=== PATIENT | male | born 1995 | race Hispanic/Latino ===

== ENCOUNTER 2020-10-07 12:21 | Emergency (ER) | payer OTHER ==
[2020-10-07] MEDS ORDERED: ASPIRIN 325 MG TABLET ONE (12:29)
[2020-10-07 12:45] LABS: BASOPHILS % (AUTO) 0.4 % (0.0-5.0); HEMATOCRIT 46.7 % (42-54); LYMPHOCYTES % (AUTO) 29.7 % (21.0-51.0); MEAN CORPUSCULAR HEMOGLOBIN 30.1 pg (27.0-33.0); MEAN CORPUSCULAR HGB CONC 34.7 g/dL (32.0-36.0); MEAN CORPUSCULAR VOLUME 86.6 fL (79-99); MONOCYTES % (AUTO) 9.4 % (3.0-13.0); NEUTROPHILS % (AUTO) 59.2 % (40.0-77.0); PLATELET COUNT (AUTO) 260 K/uL (130-400); RED BLOOD CELL COUNT(AUTO) 5.39 MIL/uL (4.50-6.20); WHITE BLOOD COUNT (AUTO) 6.7 K/uL (4.8-10.8)
[2020-10-07 13:08] LABS: INR 0.94 (0.85-1.15); PARTIAL THROMBOPLASTIN TIME 26.5 SEC (26.3-35.5); PROTHROMBIN TIME 10.2 SEC (9.6-11.6)
[2020-10-07 13:16] LABS: B-TYPE NATRIURETIC PEPTIDE 10 pg/mL (0-100)
[2020-10-07 13:33] LABS: ALBUMIN 4.6 g/dL (3.5-5.0); BILIRUBIN,TOTAL 0.7 mg/dL (0.2-1.0); CREATININE 0.9 mg/dL (0.5-1.5); POTASSIUM 3.5 mmol/L (3.5-5.1)
[2020-10-07 14:17] LABS: APPEARANCE,URINE CLEAR (CLEAR); BILIRUBIN,URINE NEGATIVE (NEGATIVE); COLOR,URINE YELLOW (YELLOW); GLUCOSE, URINE (UA) NEGATIVE (NEGATIVE); KETONES,URINE NEGATIVE (NEGATIVE); LEUKOCYTE ESTERASE ,URINE NEGATIVE (NEGATIVE); NITRATE,URINE NEGATIVE (NEGATIVE); OCCULT BLOOD,URINE NEGATIVE (NEGATIVE); PH,URINE 7.5 (5.0-8.0); PROTEIN,URINE NEGATIVE (NEGATIVE); UROBILINOGEN,URINE 0.2 mg/dL (0.2-1.0)
== END 2020-10-07 17:50 | disposition home or self-care (01) ==
LOC: EDH 12:21
DX: R07.89 Other chest pain (principal); R00.2 Palpitations; Z72.0 Tobacco use
CPT/HCPCS: 36415; 71045; 80053; 81003; 82550; 83880; 84484; 85025; 85610; 85730; 93005

== ENCOUNTER 2021-10-02 06:06 | Day surgery (SDC) | payer OTHER ==
[2021-09-28 11:15] LABS: BASOPHILS % (AUTO) 0.5 % (0.0-5.0); EOSINOPHILS % (AUTO) 1.1 % (0.0-8.0); HEMATOCRIT 45.3 % (42-54); LYMPHOCYTES % (AUTO) 28.1 % (21.0-51.0); MEAN CORPUSCULAR HEMOGLOBIN 30.6 pg (27.0-33.0); MEAN CORPUSCULAR HGB CONC 35.1 g/dL (32.0-36.0); MEAN CORPUSCULAR VOLUME 87.1 fL (79-99); MONOCYTES % (AUTO) 8.2 % (3.0-13.0); NEUTROPHILS % (AUTO) 61.7 % (40.0-77.0); PLATELET COUNT (AUTO) 267 K/uL (130-400); RED CELL DISTRIBUTION WIDTH 11.9 % (11.0-15.5); WHITE BLOOD COUNT (AUTO) 7.3 K/uL (4.8-10.8)
[2021-09-28 11:26] LABS: CREATININE 0.9 mg/dL (0.5-1.5); POTASSIUM 3.8 mmol/L (3.5-5.1)
[2021-09-28 11:36] LABS: INR 0.96 (0.85-1.15); PROTHROMBIN TIME 10.5 SEC (9.6-11.6)
[2021-09-28 11:38] LABS: PARTIAL THROMBOPLASTIN TIME 27.3 SEC (26.3-35.5)
[2021-10-01 09:40] VITALS: BP 160/86
[2021-10-02] VITALS (9 sets, daily range): BP systolic 117–152; BP diastolic 77–91
[~2021-10-02] VITALS: Ht 180.3 cm; Wt 112.4 kg
[~2021-10-02 06:06] MED LIST: DILT240C97 PO
[2021-10-02] MEDS ORDERED: 0.9%NACL 1000ML 1,000 ML IV ONE (07:07)
[2021-10-02] MEDS ORDERED: HEPARIN 10,000 UNIT/10ML (1,000 UNIT/ML) VIAL ONE (07:20)
[2021-10-02] MEDS ORDERED: LIDOCAINE HCL 400MG/20ML VIAL ONE ×2 (07:20→08:39)
[2021-10-02] MEDS ORDERED: MEPERIDINE-PF 25 MG/ML SYG ONE ×4 (08:08→09:51)
[2021-10-02] MEDS ORDERED: MIDAZOLAM HCL 1 MG/ML 2ML VIAL ONE ×4 (08:08→09:51)
[2021-10-02] MEDS ORDERED: ADENOSINE 6MG VIAL IV ONE (10:00)
[2021-10-02] MEDS ORDERED: ADENOSINE 90MG VIAL IV ONE (10:16)
[2021-10-02] MEDS ORDERED: ONDANSETRON 4MG INJ ONE (11:06)
[2021-10-02] MEDS ORDERED: FLECAINIDE ACETATE 100 MG TABLET PO SCH (12:02)
[2021-10-02] MEDS ORDERED: FLEC100T3 PO (12:07)
== END 2021-10-02 14:45 | disposition home or self-care (01) ==
LOC: DAH 06:06
PROVIDERS: ATTEND Internal Medicine Cardiovascular Disease
DX: I47.1 Supraventricular tachycardia (principal); I48.91 Unspecified atrial fibrillation; I45.10 Unspecified right bundle-branch block; G20 Parkinson's disease; Z79.01 Long term (current) use of anticoagulants; Z98.890 Other specified postprocedural states; Z72.89 Other problems related to lifestyle; Z79.899 Other long term (current) drug therapy
CPT/HCPCS: 36415; 80048; 85025; 85610; 85730; 93613; 93621; 93623; 93653; A4215; A4216; A4221; A4222; A4223 ×3; A4606; A4649 ×2; A4663; C1730 ×4; C1732; C1894 ×5; J0153 ×2; J1644; J2175 ×4; J2250 ×4; J3490 ×2; J7030; 99156; 99157; J2405